=== PATIENT | male | born 1970 | race African-American/Black ===

== ENCOUNTER 2022-12-19 11:32 | Emergency (ER) | payer OTHER ==
[2022-12-19] MEDS ORDERED: NA CHLORIDE 0.9% 2,000 ML ONE (12:33)
[2022-12-19 12:44] LABS: Absolute Lymphocytes (CBC) 2.1 K/uL (0.7-4.9); Hematocrit 39.1 % (39.6-49.0); Lymphocytes % 41.7 % (15.3-44.8); MPV 8.6 fL (7.6-11.3); RBC Red Blood Cell Count 4.55 M/uL (4.33-5.43)
[2022-12-19 12:55] LABS: Protime INR 1.01
[2022-12-19 13:08] LABS: Albumin 3.8 g/dL (3.4-5.0); Bilirubin Total 1.1 mg/dL (0.2-1.0); Protein, Total 7.5 g/dL (6.4-8.2); Troponin High Sensitivity 6.2 pg/mL (<58.9)
--- NOTE | 2022-12-19 13:37 | RAD REPORT ---
EXAM DESCRIPTION: RAD - Ankle Right 3 View - 12/19/2022 1:26 pm CLINICAL HISTORY: Right ankle pain FINDINGS: No fracture or dislocation is seen. No significant bone or joint abnormality noted
--- NOTE | 2022-12-19 14:34 | ER ---
Nurse's Notes [facility] Name: Bandar Rodriges Age: 52 yrs Sex: Male : 1970 Arrival Date: 12/19/2022 Time: 11:32 Bed 7 Private MD: Diagnosis: Disorder of muscle, unspecified-elevated CPK levels Presentation: 12/19 12:08 Chief complaint: Patient states: sent for elevated creatinine and CK. Coronavirus iw screen: At this time, the client does not indicate any symptoms associated with coronavirus-19. Initial Sepsis Screen: Does the patient meet any 2 criteria? No. Patient's initial sepsis screen is negative. Does the patient have a suspected source of infection? No. Patient's initial sepsis screen is negative. Risk Assessment: Do you want to hurt yourself or someone else? Patient reports no desire to harm self or others. 12:08 Acuity: EUSEBIO 3 iw 12:08 Method Of Arrival: Ambulatory iw 12:09 Ebola Screen: Patient negative for fever greater than or equal to 101.5 degrees iw Fahrenheit, and additional compatible Ebola Virus Disease symptoms Patient denies exposure to infectious person. Patient denies travel to an Ebola-affected area in the 21 days before illness onset. No symptoms or risks identified at this time. Onset of symptoms was December 19, 2022. Historical: - Allergies: 12:09 No Known Allergies; iw Screenin:38 [facility] ED Fall Risk Assessment (Adult) History of falling in the last 3 months, kc6 including since admission No falls in past 3 months (0 pts) Confusion or Disorientation No (0 pts) Intoxicated or Sedated No (0 pts) Impaired Gait No (0 pts) Mobility Assist Device Used No (0 pt) Altered Elimination No (0 pt) Score/Fall Risk Level 0 - 2 = Low Risk Oriented to surroundings, Maintained a safe environment, Educated pt \T\ family on fall prevention, incl call for assistance when getting out of bed, Assessed \T\ reinforced patient's understanding of fall precautions, Hourly rounding (assess needs \T\ fall precautionary measures) done. Abuse screen: Denies threats or abuse. Denies injuries from another. Nutritional screening: No deficits noted. Tuberculosis screening: No symptoms or risk factors identified. Assessment: 12:38 General: Appears in no apparent distress. comfortable, Behavior is calm, cooperative, kc6 appropriate for age. Pain: Denies pain. Neuro: Peterson Agitation-Sedation Scale (RASS): 0 - Alert and Calm Level of Consciousness is awake, alert, obeys commands, Oriented to person, place, time, situation, Appropriate for age. Cardiovascular: Capillary refill < 3 seconds. Respiratory: Airway is patent Trachea midline Respiratory effort is even, unlabored, Respiratory pattern is regular, symmetrical. GI: No signs and/or symptoms were reported involving the gastrointestinal system. : No signs and/or symptoms were reported regarding the genitourinary system. EENT: No signs and/or symptoms were reported regarding the EENT system. Derm: No signs and/or symptoms reported regarding the dermatologic system. Skin is intact, Skin is pink, warm \T\ dry. Musculoskeletal: No signs and/or symptoms reported regarding the musculoskeletal system. Circulation, motion, and sensation intact. Capillary refill < 3 seconds, Range of motion: intact in all extremities. 13:38 Reassessment: Patient appears in no apparent distress at this time. No changes from kc6 previously documented assessment. Patient and/or family updated on plan of care and expected duration. Pain level reassessed. Patient is alert, oriented x 3, equal unlabored respirations, skin warm/dry/pink. 14:38 Reassessment: Patient appears in no apparent distress at this time. No changes from kc6 previously documented assessment. Patient and/or family updated on plan of care and expected duration. Pain level reassessed. Patient is alert, oriented x 3, equal unlabored respirations, skin warm/dry/pink. Vital Signs: 12:09 BP 120 / 82; Pulse 76; Resp 16; Pulse Ox 98% on R/A; Weight 113.4 kg; Height 5 ft. 9 iw in. ; Pain 7/10; 12:39 BP 130 / 86; Pulse 74; Resp 18 S; Pulse Ox 100% on R/A; kc6 14:10 BP 145 / 96; Pulse 64; Resp 19 S; Pulse Ox 96% on R/A; kc6 12:09 Body Mass Index 36.92 (113.40 kg, 175.26 cm) iw 12:09 Pain Scale: Adult iw ED Course: 11:34 Patient arrived in ED. im 11:36 Christine Zhao FNP-C is PHCP. snw 11:36 Jose Chance MD is Attending Physician. snw 12:08 Arm band placed on. kc6 12:09 Triage completed. iw 12:14 Stewart Gonzalez, RN is Primary Nurse. bp 12:37 Inserted saline lock: 20 gauge in right antecubital area, using aseptic technique. kc6 Blood collected. 12:38 Patient has correct armband on for positive identification. Bed in low position. Call kc6 light in reach. Side rails up X 1. 13:28 Ankle Right 3 View XRAY In Process Unspecified. EDMS 14:32 Robbie Espino MD is Referral Physician. snw 15:08 No provider procedures requiring assistance completed. IV discontinued, intact, kc6 bleeding controlled, No redness/swelling at site. Pressure dressing applied. Administered Medications: 12:37 Drug: NS 0.9% IV (20 ml/kg) 20 ml/kg Route: IV; Rate: 1 bolus; Site: right antecubital; kc6 15:09 Follow up: Response: No adverse reaction; IV Status: Completed infusion; IV Intake: kc6 2000ml Medication: 15:09 VIS not applicable for this client. kc6 Intake: 15:09 IV: 2000ml; Total: 2000ml. kc6 Outcome: 14:33 Discharge ordered by . snw 15:08 Discharged to home ambulatory. kc6 15:08 Condition: stable 15:08 Discharge instructions given to patient, Instructed on discharge instructions, follow up and referral plans. Demonstrated understanding of instructions, follow-up care. 15:09 Patient left the ED. kc6 Signatures: Dispatcher [employer] EDAK Christine Zhao, SILK EXAMINER-C SILK EXAMINER-Csnw Jessica Merchant, SEKOU SAPP Stewart Gonzalez, RN RN Nikki Lemus RN RN kc6 Lea Falcon
--- NOTE | 2022-12-19 14:34 | EDPHYS ---
Physician Documentation [facility] Name: Bandar Rodriges Age: 52 yrs Sex: Male : 1970 Arrival Date: 12/19/2022 Time: 11:32 Bed 7 Private MD: ED Physician Jose Chance HPI: 12/19 12:04 This 52 yrs old Black Male presents to ER via Unassigned with complaints of Abnormal snw Lab Results. 12:04 pt with increased CPK per PCP, increasing over the past 10 days. Severity of symptoms: snw At their worst the symptoms were very mild in the emergency department the symptoms have resolved. The patient has not experienced similar symptoms in the past. The patient has been recently seen by a physician: the patient's primary care provider, with similar presenting complaints. Historical: - Allergies: 12:09 No Known Allergies; iw ROS: 12:00 Constitutional: Negative for fever, chills, and weight loss, Eyes: Negative for injury, snw pain, redness, and discharge, ENT: Negative for injury, pain, and discharge, Neck: Negative for injury, pain, and swelling, Cardiovascular: Negative for chest pain, palpitations, and edema, Respiratory: Negative for shortness of breath, cough, wheezing, and pleuritic chest pain, Abdomen/GI: Negative for abdominal pain, nausea, vomiting, diarrhea, and constipation, Back: Negative for injury and pain, : Negative for injury, bleeding, discharge, and swelling, Skin: Negative for injury, rash, and discoloration, Neuro: Negative for headache, weakness, numbness, tingling, and seizure, Psych: Negative for depression, anxiety, suicide ideation, homicidal ideation, and hallucinations. 12:00 MS/extremity: Positive for mild ankle and rotator cuff discomfort. Exam: 11:59 Constitutional: This is a well developed, well nourished patient who is awake, alert, snw and in no acute distress. Head/Face: Normocephalic, atraumatic. Eyes: Pupils equal round and reactive to light, extra-ocular motions intact. Lids and lashes normal. Conjunctiva and sclera are non-icteric and not injected. Cornea within normal limits. Periorbital areas with no swelling, redness, or edema. ENT: Nares patent. No nasal discharge, no septal abnormalities noted. Tympanic membranes are normal and external auditory canals are clear. Oropharynx with no redness, swelling, or masses, exudates, or evidence of obstruction, uvula midline. Mucous membranes moist. Neck: Trachea midline, no thyromegaly or masses palpated, and no cervical lymphadenopathy. Supple, full range of motion without nuchal rigidity, or vertebral point tenderness. No Meningismus. Chest/axilla: Normal chest wall appearance and motion. Nontender with no deformity. No lesions are appreciated. Cardiovascular: Regular rate and rhythm with a normal S1 and S2. No gallops, murmurs, or rubs. Normal PMI, no JVD. No pulse deficits. Respiratory: Lungs have equal breath sounds bilaterally, clear to auscultation and percussion. No rales, rhonchi or wheezes noted. No increased work of breathing, no retractions or nasal flaring. Abdomen/GI: Soft, non-tender, with normal bowel sounds. No distension or tympany. No guarding or rebound. No evidence of tenderness throughout. Back: No spinal tenderness. No costovertebral tenderness. Full range of motion. Skin: Warm, dry with normal turgor. Normal color with no rashes, no lesions, and no evidence of cellulitis. Neuro: Awake and alert, GCS 15, oriented to person, place, time, and situation. Cranial nerves II-XII grossly intact. Motor strength 5/5 in all extremities. Sensory grossly intact. Cerebellar exam normal. Normal gait. Psych: Awake, alert, with orientation to person, place and time. Behavior, mood, and affect are within normal limits. 11:59 Musculoskeletal/extremity: Extremities: rotator cuff x 1 year, bilateral left greater than right ankle pain off and on. Heavy weight javascript application developer. Vital Signs: 12:09 BP 120 / 82; Pulse 76; Resp 16; Pulse Ox 98% on R/A; Weight 113.4 kg; Height 5 ft. 9 iw in. ; Pain 7/10; 12:39 BP 130 / 86; Pulse 74; Resp 18 S; Pulse Ox 100% on R/A; kc6 14:10 BP 145 / 96; Pulse 64; Resp 19 S; Pulse Ox 96% on R/A; kc6 12:09 Body Mass Index 36.92 (113.40 kg, 175.26 cm) iw 12:09 Pain Scale: Adult iw MDM: 11:36 Patient medically screened. snw 12:02 Differential diagnosis: viral Infection, bacterial infection. Data reviewed: vital snw signs, nurses notes. ED course: sees Dr. Machelle Martin in [place]. They have been monitoring pt CPK, yesterday CPK 890. Pt without complaint, denies CP, denies Steroid use, lifts heavy. 14:20 Management of patient was discussed with the following: Dr Espino (check LFT's snw (normal), Amylase - will add on), f/u in office. Counseling: I had a detailed discussion with the patient and/or guardian regarding: the historical points, exam findings, and any diagnostic results supporting the discharge/admit diagnosis, the presence of at least one elevated blood pressure reading (>120/80) during this emergency department visit, lab results, radiology results, the need for outpatient follow up, for definitive care, a neurologist. Special discussion: Based on the history and exam findings, there is no indication for further emergent testing or inpatient evaluation. I discussed with the patient/guardian the need to see the neurologist for further evaluation of the symptoms. 12/19 11:58 Order name: CBC with Diff; Complete Time: 12:54 snw 12/19 11:58 Order name: CMP; Complete Time: 14:42 snw 12/19 11:58 Order name: CPK; Complete Time: 14:42 snw 12/19 11:58 Order name: Troponin HS; Complete Time: 14:42 snw 12/19 11:58 Order name: PT-INR; Complete Time: 12:57 snw 12/19 11:58 Order name: Ptt, Activated; Complete Time: 12:57 snw 12/19 14:21 Order name: Add On-Lab snw 12/19 14:27 Order name: LAB Add On bd 12/19 14:37 Order name: Lipase; Complete Time: 14:42 EDMS 12/19 11:58 Order name: Ankle Right 3 View XRAY; Complete Time: 13:53 snw Administered Medications: 12:37 Drug: NS 0.9% IV (20 ml/kg) 20 ml/kg Route: IV; Rate: 1 bolus; Site: right antecubital; kc6 15:09 Follow up: Response: No adverse reaction; IV Status: Completed infusion; IV Intake: kc6 2000ml Disposition Summary: 12/19/22 14:33 Discharge Ordered Location: Home snw Condition: Stable snw Diagnosis - Disorder of muscle, unspecified - elevated CPK levels snw Followup: snw - With: Emergency Department - When: As needed - Reason: Worsening of condition Followup: snw - With: Private Physician - When: 2 - 3 days - Reason: Recheck today's complaints, Continuance of care, Re-evaluation by your physician Followup: snw - With: Robbie Espino MD - When: 2 - 3 days - Reason: Recheck today's complaints, Continuance of care Discharge Instructions: - Discharge Summary Sheet snw - Muscle Strain snw - Myopathy snw - Rehydration, Adult snw Forms: - Medication Reconciliation Form snw - Thank You Letter snw - Antibiotic Education snw - Prescription Opioid Use snw Signatures: Dispatcher [employer] EDChristine Ramires FNP-C AIR INTELLIGENCE OFFICER-Csnw Jessica Merchant RN SEKOU iw Nikki Yeung RN RN kc6
[2022-12-19 15:30] VITALS: BP 145/96; O2SAT 96
== END 2022-12-19 15:09 | disposition home or self-care (01) ==
LOC: ER 11:32
DX: R74.8 Abnormal levels of other serum enzymes (principal); M62.9 Disorder of muscle, unspecified
CPT/HCPCS: 85025; 36415; 82550; 85610; 85730; 84484; 83690; 80053; 73610; J7030